=== PATIENT | male | born 1995 | race Caucasian/White ===

== ENCOUNTER 2017-08-23 10:48 | Day surgery (SDC) | payer OTHER ==
[2017-08-23] MEDS ORDERED: BACITRACIN/POLYMYXIN 28.35 GM OINT TOP (13:11)
[2017-08-23] MEDS: POLYMYXIN/BACITRACIN 1L IRRIG (13:52)
[2017-08-23] MEDS ORDERED: MIDAZOLAM 1 MG/ML 2 ML INJ ×2 (13:56)
[2017-08-23] MEDS ORDERED: NEOMYC/POLYMYX/BACIT 30 GM OINT (14:00)
[2017-08-23] MEDS ORDERED: ONDANSETRON 4 MG INJ IV ×2 (14:30→20:00)
[2017-08-23] MEDS ORDERED: oxyCODONE 5 MG TAB PO (14:30)
[2017-08-23] MEDS ORDERED: morphine 10 MG INJ IV (14:30)
[2017-08-23] MEDS ORDERED: morphine 2 MG INJ IV (14:30)
[2017-08-23] MEDS ORDERED: PHENYLephrine (100 MCG/ML) 5ML SYG (14:37)
[2017-08-23] MEDS ORDERED: CEFAZOLIN 1 GM INJ ×2 (14:38→18:32)
[2017-08-23] MEDS ORDERED: ROCURONIUM 50 MG INJ (14:47)
[2017-08-23] MEDS ORDERED: PROPOFOL 20 ML ×2 (14:47)
[2017-08-23] MEDS ORDERED: LIDOCAINE 2% (SDV) 5 ML INJ (14:47)
[2017-08-23] MEDS ORDERED: SUCCINYLCHOLINE CHLORIDE 100 MG/5 ML SYG IV (14:47)
[2017-08-23] MEDS ORDERED: FENTAnyl 50 MCG/ML VIAL (15:23)
[2017-08-23] MEDS ORDERED: DEXAMETHASONE 4 MG/ML 1 ML INJ (15:41)
[2017-08-23] MEDS ORDERED: FAMOTIDINE 20 MG INJ (15:41)
[2017-08-23] MEDS ORDERED: ONDANSETRON 4 MG INJ (15:41)
[2017-08-23] MEDS: ROPIVACAINE 0.5 % 30 ML VIAL (16:16)
[2017-08-23] MEDS ORDERED: MINERAL OIL LIGHT 10 ML VIAL (17:03)
[2017-08-23] MEDS: MINERAL OIL LIGHT 10 ML VIAL TOP (17:20)
[2017-08-23] MEDS ORDERED: HYDROmorphONE 2 MG/ML SYG (17:25)
[2017-08-23] MEDS: MINERAL OIL LIGHT 10 ML VIAL (17:54)
[2017-08-23] MEDS ORDERED: SUGAMMADEX SODIUM 200 MG/2 ML VIAL IV (18:33)
[2017-08-23] MEDS ORDERED: HYDROmorphONE (0.2 MG/ML) 10ML SYG IV ×3 (20:00)
[2017-08-23] MEDS ORDERED: MEPERIDINE 25 MG INJ IV (20:00)
[2017-08-23] MEDS ORDERED: DIPHENHYDRAMINE 50 MG INJ IV (20:00)
[2017-08-23] MEDS ORDERED: PROCHLORPERAZINE 10 MG INJ IV (20:00)
[2017-08-23] MEDS ORDERED: ACETAMINOPHEN 1000MG/100ML IV 100 ML IVPB (20:00)
[2017-08-23] MEDS ORDERED: FENTAnyl 50 MCG/ML VIAL IV ×3 (20:00)
== END 2017-08-23 21:17 | disposition home or self-care (01) ==
LOC: SDS 10:48
DX: S82.841A Displaced bimalleolar fracture of right lower leg, initial encounter for closed fracture (principal); V19.9XXA Pedal cyclist (driver) (passenger) injured in unspecified traffic accident, initial encounter
CPT/HCPCS: 27814; 73610-RT; 82306; 88300

== ENCOUNTER 2017-09-20 06:01 | Day surgery (SDC) | payer OTHER ==
[2017-09-20] MEDS ORDERED: morphine 10 MG INJ IV (06:30)
[2017-09-20] MEDS ORDERED: morphine 2 MG INJ IV (06:30)
[2017-09-20] MEDS ORDERED: NEOSTIGMINE 3 MG/3 ML SYRINGE (07:16)
[2017-09-20] MEDS ORDERED: GLYCOPYRROLATE 0.4 MG INJ ×2 (07:16→08:28)
[2017-09-20] MEDS ORDERED: SUCCINYLCHOLINE CHLORIDE 100 MG/5 ML SYG IV (07:16)
[2017-09-20] MEDS ORDERED: LIDOCAINE 2% (SDV) 5 ML INJ (07:16)
[2017-09-20] MEDS ORDERED: ROCURONIUM 50 MG INJ ×2 (07:16→08:28)
[2017-09-20] MEDS ORDERED: ROPIVACAINE 0.5 % 30 ML VIAL (07:16)
[2017-09-20] MEDS ORDERED: PROPOFOL 20 ML (07:16)
[2017-09-20] MEDS ORDERED: CEFAZOLIN 1 GM INJ (07:57)
[2017-09-20] MEDS: POLYMYXIN/BACITRACIN 1L IRRIG ×2 (08:40→09:15)
[2017-09-20] MEDS ORDERED: FENTAnyl 50 MCG/ML VIAL (08:47)
[2017-09-20] MEDS: BACITRACIN/POLYMYXIN 28.35 GM OINT TOP (10:22)
[2017-09-20] MEDS: ROPIVACAINE 0.5 % 30 ML VIAL (10:22)
[2017-09-20] MEDS ORDERED: FENTAnyl 50 MCG/ML VIAL IV ×3 (11:00)
[2017-09-20] MEDS ORDERED: DIPHENHYDRAMINE 50 MG INJ IV (11:00)
[2017-09-20] MEDS ORDERED: ONDANSETRON 4 MG INJ IV (11:00)
[2017-09-20] MEDS ORDERED: METOCLOPRAMIDE 10 MG INJ IV (11:00)
[2017-09-20] MEDS ORDERED: HYDROmorphONE (0.2 MG/ML) 10ML SYG IV ×3 (11:00)
[2017-09-20] MEDS ORDERED: MEPERIDINE 25 MG INJ IV (11:00)
[2017-09-20] MEDS ORDERED: OXYCODONE/ACETAMINOPHEN (5/325) TAB PO ×2 (11:00)
[2017-09-20] MEDS ORDERED: MIDAZOLAM 1 MG/ML 2 ML INJ IV (11:00)
== END 2017-09-20 12:40 | disposition home or self-care (01) ==
LOC: SDS 06:01
DX: T84.89XA Other specified complication of internal orthopedic prosthetic devices, implants and grafts, initial encounter (principal); Y79.3 Surgical instruments, materials and orthopedic devices (including sutures) associated with adverse incidents
CPT/HCPCS: 27695; 73610-RT; 88300

== ENCOUNTER 2018-02-11 09:33 | Day surgery (SDC) | payer OTHER ==
[2018-02-11] MEDS ORDERED: LACTATED RINGER'S 1,000 ML IV (10:30)
[2018-02-11] MEDS ORDERED: PROPOFOL 20 ML ×2 (12:27→12:44)
[2018-02-11] MEDS ORDERED: MIDAZOLAM 1 MG/ML 2 ML INJ (12:27)
[2018-02-11] MEDS ORDERED: LIDOCAINE 2% (SDV) 5 ML INJ (12:27)
[2018-02-11] MEDS ORDERED: FENTAnyl 50 MCG/ML VIAL (12:27)
[2018-02-11] MEDS ORDERED: FENTAnyl 50 MCG/ML VIAL IV ×3 (12:30)
[2018-02-11] MEDS ORDERED: HYDROmorphONE 1 MG/5 ML IV SYRINGE IV ×3 (12:30)
[2018-02-11] MEDS ORDERED: morphine 2 MG INJ IV (12:30)
[2018-02-11] MEDS ORDERED: MEPERIDINE 25 MG INJ IV (12:30)
[2018-02-11] MEDS ORDERED: ONDANSETRON 4 MG INJ IV (12:30)
[2018-02-11] MEDS ORDERED: OXYCODONE/ACETAMINOPHEN (5/325) TAB PO (12:30)
[2018-02-11] MEDS ORDERED: PROCHLORPERAZINE 10 MG INJ IV (12:30)
[2018-02-11] MEDS ORDERED: DIPHENHYDRAMINE 50 MG INJ IV (12:30)
[2018-02-11] MEDS ORDERED: DEXAMETHASONE 4 MG/ML 1 ML INJ (12:33)
[2018-02-11] MEDS ORDERED: ONDANSETRON 4 MG INJ (12:33)
[2018-02-11] MEDS ORDERED: CEFAZOLIN 1 GM INJ (12:35)
[2018-02-11] MEDS: POLYMYXIN/BACITRACIN 1L IRRIG IRR (12:51)
[2018-02-11] MEDS: ROPIVACAINE 0.5 % 30 ML VIAL (12:51)
== END 2018-02-11 15:35 | disposition home or self-care (01) ==
LOC: SDS 09:33
DX: T84.84XA Pain due to internal orthopedic prosthetic devices, implants and grafts, initial encounter (principal); Y79.3 Surgical instruments, materials and orthopedic devices (including sutures) associated with adverse incidents
CPT/HCPCS: 20680; 73610-RT; 88300